=== PATIENT | female | born 1965 | race Caucasian/White ===

== ENCOUNTER → 2018-05-20 | Outpatient (CLI) | payer OTHER ==
[~2018-05-20] MED LIST: ALBU1.25 NEB; ALBU90AE INH; BUDE10.2 INH; BUDE10.22 INH; OMNIPAQUE 350 MG/ML, 100ML BOTTLE ONE; TIOT18CA INH
== END | disposition home or self-care (01) ==
LOC: CFH 12:56
PROVIDERS: ATTEND Internal Medicine Hematology & Oncology
DX: C18.0 Malignant neoplasm of cecum (principal); K76.0 Fatty (change of) liver, not elsewhere classified; J43.9 Emphysema, unspecified
CPT/HCPCS: 74177; Q9967

== ENCOUNTER 2018-06-16 19:12 | Inpatient (IN) | payer OTHER ==
[~2018-06-16] VITALS: Ht 154.9 cm; Wt 45.8 kg
[~2018-06-16 19:12] MED LIST changes: -OMNIPAQUE 350 MG/ML, 100ML BOTTLE ONE
[2018-06-16] MEDS ORDERED: ALBUTEROL SULFATE 2.5 MG/3 ML ONE (19:19)
--- NOTE | 2018-06-16 19:20 | NUR ---
TASK RN: PT ARRIVES TO ED FROM WORK ([facility]) AFTER HAIVNG SOME INCREASED SOB. PT REPORTS THAT SHE RECENTLY RAN OUT OF HOME O2. PT REPORTS THAT HOME RESCUE INHALER WAS NOT HELPING HER. PT FOUND IN LOW 70% AT [facility]. PT EN ROUTE GIVEN TWO TREATMENTS AND PIV RN MANAGED CARE. PT ALSO ABLE TO SPEAK IN FULL SENTANCES. PT HAS DIMINISHED LUNG SOUNDS AND EXPIRATORY WHEEZING. PT HAS LABORED BREATHING BUT HAS RELIEF WITH REPOSITIOING. PT CONNECTED TO ALL MONITORS AND CALL LIGHT IN REACH. AWAITING FURTHER ORDERS.
[2018-06-16] MEDS ORDERED: methylPREDNISolone SOD SUCC 125 MG/2 ML ONE (19:26)
[2018-06-16] MEDS ORDERED: ALBUTEROL/IPRATROPIUM 2.5MG/0.5MG, 3 ML NPPB SCH (19:30)
[2018-06-16] MEDS ORDERED: methylPREDNISolone SOD SUCC 125 MG/2 ML IVP ONE (19:30)
[2018-06-16] MEDS ORDERED: MAGNESIUM SULFATE PMX 2GM/50ML 50 ML IVPB ONE (19:30)
[2018-06-16] MEDS ORDERED: MAGNESIUM SULFATE PMX 2GM/50ML 50 ML ONE (19:51)
--- NOTE | 2018-06-16 19:59 | NUR ---
Task RN: mag gomes started.
[2018-06-16] MEDS ORDERED: NEBULIZER (20:45)
[2018-06-16] MEDS ORDERED: ALBU18HF INH (20:45)
[2018-06-16] MEDS ORDERED: HOME OXYGEN INH (20:47)
--- NOTE | 2018-06-16 20:51 | NUR ---
MAG INFUSING AT 25ML/HR VIA PUMP. IV SITE PATENT: 18G LT WRIST.
--- NOTE | 2018-06-16 22:00 | NUR ---
PT REPORT TO JUSTIN RITTER FOR ROOM [id number]
[2018-06-16 22:45] VITALS: BP 144/74
[2018-06-16] MEDS ORDERED: ALBUTEROL SULFATE 2.5 MG/3 ML NPPB PRN (23:45)
[2018-06-17] MEDS ORDERED: ALBUTEROL/IPRATROPIUM 2.5MG/0.5MG, 3 ML NPPB PRN
[2018-06-17] MEDS ORDERED: ENALAPRILAT 1.25 MG/ML, 2ML IVPush PRN
[2018-06-17] MEDS ORDERED: DOCUSATE 100 MG CAPSULE PO PRN
[2018-06-17] MEDS ORDERED: ACETAMINOPHEN 325 MG TABLET PO PRN
[2018-06-17] MEDS ORDERED: TEMAZEPAM 15 MG CAPSULE PO PRN
[2018-06-17] MEDS ORDERED: ONDANSETRON ODT 4 MG PO PRN
[2018-06-17] MEDS ORDERED: LIDODERM 5% PATCH TD PRN
[2018-06-17] MEDS ORDERED: GUAIFENESIN/DM 200-20MG, 10ML UDC PO PRN
[2018-06-17] MEDS: methylPREDNISolone SOD SUCC 40 MG/ML IVPush SCH ×4 (00:37→17:27)
[2018-06-17 01:16] VITALS: BP 149/83
[2018-06-17] MEDS ORDERED: FUROSEMIDE 20 MG/2 ML IV ONE (02:00)
[2018-06-17] MEDS: ALBUTEROL/IPRATROPIUM 2.5MG/0.5MG, 3 ML NPPB SCH ×6 (02:25→22:00)
[2018-06-17 02:34] LABS: BASOPHILS % (AUTO) 0 % (0-1); EOSINOPHILS % (AUTO) 0 % (1-7); LYMPHOCYTES # (AUTO) 0.35 x10^3/uL (1-3.4); LYMPHOCYTES % (AUTO) 5 % (22-44); MD NO; MEAN CORPUSCULAR HEMOGLOBIN 31.8 pg (27.0-34.8); MEAN CORPUSCULAR HGB CONC 33.7 g/dL (32.4-35.8); MEAN CORPUSCULAR VOLUME 94.3 fL (80-100); MEAN PLATELET VOLUME 7.7 fL (7.4-10.4); MONOCYTES # (AUTO) 0.07 x10^3/uL (0.2-0.8); MONOCYTES % (AUTO) 1 % (2-9); NEUTROPHILS % (AUTO) 94 % (42-75); PLATELET COUNT 130 x10^3/uL (130-400); RED BLOOD COUNT 4.84 x10^6/uL (3.82-5.3); RED CELL DISTRIBUTION WIDTH 14.1 % (9.6-15.2)
[2018-06-17 02:43] LABS: ANION GAP 6 mmol/L (5-15); CALCIUM 8.6 mg/dL (8.5-10.1); CHLORIDE 103 mmol/L (98-107)
[2018-06-17] MEDS: CEFTRIAXONE PMX 1GM/50ML 50 ML IV SCH (02:43)
[2018-06-17] MEDS ORDERED: IPRATROPIUM 0.5 MG/2.5 ML INHA NPPB SCH (03:00)
[2018-06-17] MEDS: AZITHROMYCIN 500 MG in SODIUM CHLORIDE 0.9% 250 ML IV SCH (03:24)
[2018-06-17 06:46] VITALS: BP 120/72
[2018-06-17] MEDS ORDERED: BUDESONIDE 0.5 MG/2 ML INHA NPPB SCH (09:00)
[2018-06-17] MEDS ORDERED: TEMPLATE NON-FORMULARY MED. (Albuterol Sulfate (Ventolin Hfa) 2 PUFFS) INH SCH (09:00)
[2018-06-17 14:21] VITALS: BP 126/76
[2018-06-17] MEDS: INSULIN LISPRO 100 UNITS/ML, PEN SQ-INSULIN SCH ×2 (19:08→21:00)
[2018-06-17 20:00] VITALS: BP 121/67
[2018-06-18] MEDS: methylPREDNISolone SOD SUCC 40 MG/ML IVPush SCH ×2 (00:55→05:57)
[2018-06-18 02:00] VITALS: BP 129/71
[2018-06-18] MEDS: CEFTRIAXONE PMX 1GM/50ML 50 ML IV SCH (02:11)
[2018-06-18] MEDS: AZITHROMYCIN 500 MG in SODIUM CHLORIDE 0.9% 250 ML IV SCH (04:07)
[2018-06-18] MEDS: INSULIN LISPRO 100 UNITS/ML, PEN SQ-INSULIN SCH (07:00)
[2018-06-18] MEDS: ALBUTEROL/IPRATROPIUM 2.5MG/0.5MG, 3 ML NPPB SCH (07:45)
[2018-06-18 08:00] VITALS: BP 122/72
[2018-06-18] MEDS ORDERED: PRED20TA PO (08:20)
[2018-06-18] MEDS ORDERED: AZIT500T5 PO (08:20)
[2018-06-18] MEDS ORDERED: POLYETHYLENE GLYCOL 17 GM PACKET PO SCH (09:00)
[2018-06-18] MEDS ORDERED: ALBUTEROL/IPRATROPIUM 2.5MG/0.5MG, 3 ML NPPB SCH (11:00)
[2018-06-18 17:13] LABS: HEMOGLOBIN A1C 5.1 % (4.2-6.3)
== END 2018-06-18 11:23 | disposition home or self-care (01) | DRG 189 ==
LOC: ED 22:00 → EDIP 22:01 → 4EST 22:55 → DCLOUNGE 06-18 11:12
PROVIDERS: ADMIT Internal Medicine; ATTEND Internal Medicine
DX: J96.21 Acute and chronic respiratory failure with hypoxia (principal); J44.1 Chronic obstructive pulmonary disease with (acute) exacerbation; F17.200 Nicotine dependence, unspecified, uncomplicated; Z80.51 Family history of malignant neoplasm of kidney; Z82.49 Family history of ischemic heart disease and other diseases of the circulatory system; Z83.3 Family history of diabetes mellitus; Z85.038 Personal history of other malignant neoplasm of large intestine; Z92.21 Personal history of antineoplastic chemotherapy; Z92.3 Personal history of irradiation; Z99.81 Dependence on supplemental oxygen; Z71.6 Tobacco abuse counseling
CPT/HCPCS: 36415; 84145; 99285; J7620; 71045; 80048; 82962; 83036; 83605; 83880; 85025; 93005; 94640; 96374; 96375; G0378; J0456; J0696; J1815; J1940; J2920; J2930; J3475; J7050; J7512